=== PATIENT | female | born 1985 | race Asian ===

== ENCOUNTER 2022-11-27 18:05 | Inpatient (IN) ==
[~2022-11-27 18:05] MED LIST: Buffered Lidocaine 1% SYRIN 1 ml INTRADERM ONE; Dinoprostone 10 MG VAG.SUPP VAGINAL ONE; Lactated Ringers 1000 ml BAG 1,000 ML IV ONE; Lactated Ringers 1000 ml BAG 1,000 ML IV SCH; Nalbuphine 10 MG/ML 1 ML VIAL IV PRN; Promethazine INJ(RESTRICTED) 25 MG/ML 1 ml VIAL IV PRN
[2022-11-27 19:46] LABS: Urine Benzodiazepine Screen None Detected (None Detect); Urine Cannabinoids Screen None Detected (None Detect); Urine Opiates Screen None Detected (None Detect)
[2022-11-28 11:11] LABS: ABS Basophils 0.1 10^3/uL (0.0-0.1); ABS Monocytes 0.7 10^3/uL (0.0-0.9); ABS Neutrophils 9.6 10^3/uL (1.5-7.6); ABS Nucleated RBC 0.02 10^3/ul; Eosinophil % 0.3 %; Hematocrit 40.3 % (35-45); Hemoglobin 13.9 g/dL (11.5-14.3); Mean Corpuscular Hemoglobin 33.1 pg (27-33); Mean Corpuscular Hgb Conc 34.6 g/dL (31-36); Mean Corpuscular Volume 95.6 fL (80-97); Nucleated Red Blood Cells % 0.1 /100 WBC (0.0-0.4); Platelet Count 164 10^3/uL (150-450); Red Blood Count 4.21 10^6/uL (3.63-4.92); Red Cell Distribution Width 13.2 % (12-17); White Blood Count 11.5 10^3/uL (3.8-11.8)
[2022-11-28] MEDS ORDERED: Lidocaine 1.5% EPI 1:200,000 30 ML SDV ONE (15:09)
[2022-11-28] MEDS ORDERED: OBEPIDURAL (200 ML) 200 ML EPIDURAL ONE (15:09)
[2022-11-28] MEDS ORDERED: Phenylephrine 40 mcg/mL 10mL (400mcg) SYRINGE IV PUSH PRN ×2 (15:47)
[2022-11-28] MEDS ORDERED: Lactated Ringers 1000 ml BAG 500 ML IV PRN ×2 (15:47)
[2022-11-28] MEDS ORDERED: Sodium Citrate/Citric Acid LIQ 15 ML UDC PO PRN (15:47)
[2022-11-28] MEDS ORDERED: Lactated Ringers 1000 ml BAG 1,000 ML IV ONE (15:47)
[2022-11-28] MEDS ORDERED: OBEPIDURAL (200 ML) 200 ML EPIDURAL SCH (16:00)
[2022-11-28] MEDS ORDERED: Lactated Ringers 1000 ml BAG 1,000 ML IV SCH (16:00)
[2022-11-28 17:39] LABS: Urine Appearance Clear; Urine Bilirubin Negative (Negative); Urine Blood 1+ (Negative); Urine Color Straw; Urine Glucose Negative (Negative); Urine Ketones Negative (Negative); Urine Nitrite Negative (Negative); Urine Protein Negative (Negative); Urine Specific Gravity 1.008 (1.002-1.030); Urine Urobilinogen Negative (Negative)
[2022-11-28 17:45] LABS: Urine Bacteria Absent (Absent); Urine Red Blood Cell 2+(6-10/hpf) (Absent); Urine Squamous Epithelial Cell Present (Absent); Urine White Blood Cell Trace(0-5/hpf) (Absent)
[2022-11-28] MEDS ORDERED: Bupivacaine 0.5% SDV PF 30ML VIAL ONE (18:52)
[2022-11-28] MEDS ORDERED: Oxytocin in LR 20,000 MILLI.UNIT/1,000 ML BAG IV ONE (21:12)
[2022-11-29] MEDS ORDERED: Witch Hazel PAD JAR TOPICAL PRN (00:51)
[2022-11-29] MEDS ORDERED: Glycerin ADULT 2.4 gm SUPP PR PRN (00:51)
[2022-11-29] MEDS ORDERED: Oxytocin in LR 20,000 MILLI.UNIT/1,000 ML BAG IV SCH (00:55)
[2022-11-29] MEDS ORDERED: Lactated Ringers 1000 ml BAG 1,000 ML IV SCH (01:00)
[2022-11-29] MEDS: Dibucaine 1% OINT 28.35 GM TUBE PR PRN (06:19)
[2022-11-30 07:18] LABS: ABS Eosinophils 0.1 10^3/uL (0.0-0.5); ABS Lymphocytes 1.5 10^3/uL (1.0-4.8); ABS Monocytes 0.7 10^3/uL (0.0-0.9); Eosinophil % 1.3 %; Hematocrit 33.5 % (35-45); Hemoglobin 11.7 g/dL (11.5-14.3); Lymphocyte % 15.9 %; Mean Corpuscular Hemoglobin 33.7 pg (27-33); Mean Corpuscular Hgb Conc 34.8 g/dL (31-36); Mean Corpuscular Volume 96.8 fL (80-97); Mean Platelet Volume 9.8 fL (7.5-11.2); Platelet Count 142 10^3/uL (150-450); Red Blood Count 3.46 10^6/uL (3.63-4.92); Red Cell Distribution Width 13.4 % (12-17); White Blood Count 9.4 10^3/uL (3.8-11.8)
[2022-11-30] MEDS: Dibucaine 1% OINT 28.35 GM TUBE PR PRN (08:07)
[2022-11-30 08:27] VITALS: BP 107/74
== END 2022-11-30 18:00 | disposition home or self-care (01) | DRG 807 ==
LOC: MCHOBOUT 18:05 → MCHOB 19:02
PROVIDERS: ADMIT Obstetrics & Gynecology; ATTEND Obstetrics & Gynecology